=== PATIENT | male | born 1960 | race Hispanic/Latino ===

== ENCOUNTER 2018-09-20 07:36 | Emergency (ER) | payer MEDICARE ==
[2018-09-20 08:10] LABS: CREATININE 1.2 mg/dL (0.5-1.5); POTASSIUM 3.5 mmol/L (3.5-5.1)
[2018-09-20] MEDS ORDERED: FUROSEMIDE 10 MG/ML 2ML VIAL ONE (08:11)
[2018-09-20] MEDS ORDERED: ASPIRIN 325 MG TABLET ONE (08:11)
[2018-09-20] MEDS ORDERED: FUROSEMIDE 10 MG/ML 4ML VIAL ONE (08:11)
[2018-09-20] MEDS ORDERED: IPRATROPIUM/ALBUTEROL SULFATE 3 ML SOLUTION IH ONE ×2 (08:18→09:19)
[2018-09-20 08:25] LABS: ALBUMIN 1.8 g/dL (3.5-5.0); BILIRUBIN,TOTAL 0.4 mg/dL (0.2-1.0)
[2018-09-20 08:26] LABS: BASOPHILS % (AUTO) 0.9 % (0.0-5.0); EOSINOPHILS % (AUTO) 1.7 % (0.0-8.0); HEMATOCRIT 34.9 % (42-54); LYMPHOCYTES % (AUTO) 12.4 % (21.0-51.0); MEAN CORPUSCULAR HEMOGLOBIN 26.1 pg (27.0-33.0); MEAN CORPUSCULAR HGB CONC 32.3 g/dL (32.0-36.0); MEAN CORPUSCULAR VOLUME 80.7 fL (79-99); NUCLEATED RED BLOOD CELLS 0.2 % (0.0-0.19); PLATELET COUNT (AUTO) 226 K/uL (130-400); RED BLOOD CELL COUNT(AUTO) 4.32 MIL/uL (4.50-6.20); RED CELL DISTRIBUTION WIDTH 14.7 % (11.0-15.5); WHITE BLOOD COUNT (AUTO) 9.7 K/uL (4.8-10.8)
[2018-09-20 09:17] LABS: B-TYPE NATRIURETIC PEPTIDE 876 pg/mL (0-100)
[2018-09-20] MEDS ORDERED: METOPROLOL TARTRATE 50 MG TAB ONE (09:21)
[2018-09-20 09:22] LABS: INR 0.95 (0.85-1.15); PARTIAL THROMBOPLASTIN TIME 20.5 SEC (26.3-35.5)
[2018-09-20] MEDS ORDERED: ENALAPRILAT DIHYDRATE 1.25MG/ML 1ML VIAL IV SCH (09:30)
[2018-09-20 10:18] LABS: AMPHET/METH SCREEN,URINE NEGATIVE (NEGATIVE); BARBITURATE SCREEN, URINE NEGATIVE (NEGATIVE); BENZODIAZEPINES SCREEN,URINE NEGATIVE (NEGATIVE); CANNABINOID SCREEN,URINE NEGATIVE (NEGATIVE); COCAINE SCREEN,URINE NEGATIVE (NEGATIVE); OPIATE SCREEN,URINE NEGATIVE (NEGATIVE); PHENCYCLIDINE SCREEN,URINE NEGATIVE (NEGATIVE)
[2018-09-20] MEDS ORDERED: IOHEXOL 350 MG/ML 100ML INFUS..BTL IV ONE (11:20)
[2018-09-20] MEDS ORDERED: SODIUM CHLORIDE 0.9% 100 ML IV ONE (13:00)
[2018-09-20] MEDS ORDERED: CEFTRIAXONE SODIUM 1 GM ONE (13:00)
== END 2018-09-20 13:47 | disposition home or self-care (01) ==
LOC: EDH 07:36
DX: J18.0 Bronchopneumonia, unspecified organism (principal); J44.1 Chronic obstructive pulmonary disease with (acute) exacerbation; I10 Essential (primary) hypertension; I25.10 Atherosclerotic heart disease of native coronary artery without angina pectoris; E11.649 Type 2 diabetes mellitus with hypoglycemia without coma; Z72.0 Tobacco use
CPT/HCPCS: 36415; 71045; 71275; 80053; 80305; 82550; 83874; 83880; 84484; 85025; 85378; 85610; 85730; 93005; 94640 ×2; 96374; 96375; 99284; J0696; J1940 ×2; J3490; Q9967

== ENCOUNTER 2018-10-04 21:26 | Inpatient (IN) | payer MEDICARE | END 2018-10-07 17:20 | disposition home or self-care (01) | LOC: EDH 21:26 → EDHIP 23:40 → 2DH 10-05 02:18 | DX: I50.9 Heart failure, unspecified (principal); E87.6 Hypokalemia; I25.10 Atherosclerotic heart disease of native coronary artery without angina pectoris; E11.42 Type 2 diabetes mellitus with diabetic polyneuropathy; F17.200 Nicotine dependence, unspecified, uncomplicated ==

== ENCOUNTER → 2019-05-05 | Outpatient (CLI) | payer MEDICARE ==
[~2019-05-05] MED LIST: ASPI-1181 PO; FURO20TA4 PO; GLIP10TA9 PO; LISI2.5T2 PO; METF-446 PO; METO50TA9 PO; SPIR25TA PO
== END | disposition home or self-care (01) ==
LOC: OIH 09:21
PROVIDERS: ATTEND Family Medicine
DX: I50.9 Heart failure, unspecified (principal)
CPT/HCPCS: 71046

== ENCOUNTER → 2019-09-14 | Outpatient (CLI) | payer MEDICARE ==
[~2019-09-14] MED LIST changes: +ATOR20TA65 PO; +FERS325 PO; +FURO40TA5 PO; +IPRA3AMP24 IH; +PRED20TA3 PO
[2019-09-14 08:34] LABS: INR 1.04 (0.85-1.15); PARTIAL THROMBOPLASTIN TIME 28.3 SEC (26.3-35.5); PROTHROMBIN TIME 10.9 SEC (9.6-11.6)
--- NOTE | 2019-09-14 10:15 | NUR ---
U/S GD LEFT THORACENTESIS PROCEDURE PERFORMED BY DR. MCDONALD. PUNCTURE SITE LEFT POSTERIOR BACK AND PATIENT TOLERATED PROCEDURE WELL. TOTAL REMOVED 1.3 LITERS OF STRAW COLOR FLUID . END OF PROCEDURE AT 0920. CATHETER REMOVED AND DRESSING APPLIED. NO BLEEDING NOTED. POST CHEST X-RAY TAKEN AND READ BY DR. MCDONALD. NO PNEUMOTHORAX SEEN. DISCHARGE INSTRUCTIONS GIVEN TO PATIENT AND AND VERBALIZED UNDERSTANDING. DISCHARGED VIA WHEELCHAIR, AT 1015 PT STABLE, AAO X3 WITH NO C/O PAIN.
== END ==
LOC: RAH 07:10
PROVIDERS: ATTEND Family Medicine
DX: J91.8 Pleural effusion in other conditions classified elsewhere (principal); I25.810 Atherosclerosis of coronary artery bypass graft(s) without angina pectoris; E78.5 Hyperlipidemia, unspecified; I13.0 Hypertensive heart and chronic kidney disease with heart failure and stage 1 through stage 4 chronic kidney disease, or unspecified chronic kidney disease; E11.22 Type 2 diabetes mellitus with diabetic chronic kidney disease; N18.3 Chronic kidney disease, stage 3 (moderate); E11.51 Type 2 diabetes mellitus with diabetic peripheral angiopathy without gangrene; I50.33 Acute on chronic diastolic (congestive) heart failure; Z98.890 Other specified postprocedural states; Z79.01 Long term (current) use of anticoagulants; Z95.1 Presence of aortocoronary bypass graft; Z79.899 Other long term (current) drug therapy
CPT/HCPCS: 32555; 36415; 71045; 85610; 85730

== ENCOUNTER → 2019-09-29 | Outpatient (CLI) | payer MEDICARE ==
[~2019-09-29] MED LIST changes: +DOCU-116 PO; -FURO20TA4 PO; +TAMS-1 PO
--- NOTE | 2019-09-29 10:50 | NUR ---
U/S GUIDED RIGHT THORACENTESIS PROCEDURE PERFORMED BY DR. Akhil MCDONALD. PUNCTURE SITE RIGHT POSTERIOR LATERAL BACK AND PATIENT TOLERATED PROCEDURE WELL. TOTAL REMOVED 1.5 LITERS OF CLOUDY YELLOW PLEURAL FLUID. END OF PROCEDURE AT 1105. CATHETER REMOVED AND DRESSING APPLIED. NO BLEEDING NOTED. POST CHEST X-RAY DONE AND READ BY DR. Akhil MCDONALD. POSITIVE FOR PNEUMOTHORAX. ORDERS RECEIVED TO HOLD PATIENT, CONTINUE MONITORING PATIENT, REPEAT CXR IN 1-2 HOURS. INFORMED PATIENT/FAMILY PT STABLE AT THIS TIME, O2 @ 4LNC, AAO X3 WITH NO C/O PAIN.
--- NOTE | 2019-09-29 14:25 | NUR ---
REPEAT CXR PERFORMED. READ BY DR MCDONALD ORDERED TO CALL IR DR. SHAW FOR AN ULTRASOUND GUIDED RIGHT CHEST TUBE FOR NOT IMPROVING RIGHT PNEUMOTHORAX.
--- NOTE | 2019-09-29 14:35 | NUR ---
DR. MCDONALD AND DR. SHAW AT BEDSIDE SPEAKING TO PATIENT. PT STATES, "I DON'T WANT TO HAVE A CHEST TUBE PLACED AND I DON'T WANT TO BE HOSPITALIZED AND HAVE TO STAY IN THE HOSPITAL." DR SHAW ORDERED PATIENT TO BE DISCHARGED HOME FOLLOWUP IN THE MORNING THROUGH THE ED AT 8AM FOR A REPEAT CHEST XRAY. PT AND SIGNIFICANT OTHER STATED, "YES WE WILL RETURN BACK TO THE HOSPITAL TO HAVE THE CHEST XRAY DONE."
== END ==
LOC: RAH 09:20
PROVIDERS: ATTEND Family Medicine
DX: J90 Pleural effusion, not elsewhere classified (principal)
CPT/HCPCS: 32555; 71046; A4215; 71045

== ENCOUNTER → 2019-09-30 | Outpatient (CLI) | payer MEDICARE ==
[~2019-09-30] MED LIST changes: -DOCU-116 PO; -TAMS-1 PO
== END | disposition home or self-care (01) ==
LOC: RAH 07:55
PROVIDERS: ATTEND Radiology Diagnostic Radiology
DX: J90 Pleural effusion, not elsewhere classified (principal); I51.7 Cardiomegaly; J93.9 Pneumothorax, unspecified
CPT/HCPCS: 71045

== ENCOUNTER → 2019-10-01 | Outpatient (CLI) | payer MEDICARE | END | disposition home or self-care (01) | LOC: RAH 07:41 | PROVIDERS: ATTEND Radiology Diagnostic Radiology | DX: J90 Pleural effusion, not elsewhere classified (principal); J93.9 Pneumothorax, unspecified | CPT/HCPCS: 71045 ==

== ENCOUNTER → 2019-10-02 | Outpatient (CLI) | payer MEDICARE ==
--- NOTE | 2019-10-02 09:13 | NUR ---
AGAINST MEDICAL ADVICE PATIENT HAD A RT SIDED THORACENTESIS ON WEDNESDAY. POST CHEST X-RAY READ BY DR Akhil MCDONALD AND DR Sergio SHAW. LARGE PNEUMOTHORAX SEEN AND CHEST TUBE PLACEMENT RECOMMENDED. PATIENT REFUSED AND STATED HE FEELS FINE AND [place]ADISON NOT A CHEST TUBE OR BE ADMITTED. DR Sergio SHAW SUGGESTED THE PATIENT HAS "A STIFF LUNG" AND IT WILL NOT REEXPAND. PATINT DISCHARGE ON WEDNESDAY AND RETURNED WEDNESDAY, WEDNESDAY AND THIS MORNING FOR CHEST X-RAYS. RT PNEUMOTHORAX STILL PRESENT AND IMAGES REVIEWED BY DR Ned JUAREZ. RT PNEUMOTHORAX STILL PRESENT AND RECOMMENDS CHEST TUBE PLACEMENT. PATIENT CONTINUES TO REFURE CHEST TUBE AND WANTS TO GO HOME. RISKS AND COMPLICATIONS EXPLAINED TO PATIENT AND . VERBALIZED UNDERSTANDING AND STILL REQUESTS TO LEAVE. PATIENT SIGNED AMA DISCHARGE FORM AND DISCHARGED VIA W/C. AAO X3 WITH NO C/O PAIN. VS: HR-87, R-24-28, O2 SAT-99% ON RA, BP-149/66. PATIENT OUTCOME REPORTED TO DR IRVING'S OFF IC AND SPOKE TO Riki DELUCA MA.
== END | disposition home or self-care (01) ==
LOC: RAH 07:45
PROVIDERS: ATTEND Radiology Diagnostic Radiology
DX: J93.9 Pneumothorax, unspecified (principal)
CPT/HCPCS: 71045

== ENCOUNTER 2019-11-17 14:48 | Inpatient (IN) | payer MEDICARE ==
[~2019-11-17] VITALS: Ht 172.7 cm; Wt 56.7 kg
[~2019-11-17 14:48] MED LIST changes: -ASPI-1181 PO; +ASPI-1443 PO; +CARV12.511 PO; +CODE473L6 PO; +FE F1CAP33 PO; -FERS325 PO; +LISI-617 PO; -LISI2.5T2 PO; -METF-446 PO; -METO50TA9 PO; -PRED20TA3 PO; +TAMS-1 PO
[2019-11-17 15:27] LABS: BASOPHILS % (AUTO) 0.9 % (0.0-5.0); EOSINOPHILS % (AUTO) 3.4 % (0.0-8.0); HEMATOCRIT 28.7 % (42-54); LYMPHOCYTES % (AUTO) 16.6 % (21.0-51.0); MEAN CORPUSCULAR HEMOGLOBIN 25.4 pg (27.0-33.0); MONOCYTES % (AUTO) 5.4 % (3.0-13.0); NEUTROPHILS % (AUTO) 72.8 % (40.0-77.0); PLATELET COUNT (AUTO) 324 K/uL (130-400); RED CELL DISTRIBUTION WIDTH 16.7 % (11.0-15.5); WHITE BLOOD COUNT (AUTO) 8.6 K/uL (4.8-10.8)
[2019-11-17 15:34] LABS: CREATININE 2.4 mg/dL (0.5-1.5); POTASSIUM 4.8 mmol/L (3.5-5.1)
[2019-11-17] MEDS ORDERED: SODIUM CHLORIDE 0.9% 10 ML VIAL IVP PRN (16:30)
[2019-11-17] MEDS ORDERED: GLUCAGON 1MG KIT 1 MG ML IM PRN ×2 (16:45→22:45)
[2019-11-17] MEDS ORDERED: INSULIN IV SS2 SQ PRN ×2 (16:45)
[2019-11-17] MEDS ORDERED: DEXTROSE 50%-WATER 50 ML DISP.SYRIN IV PRN (16:45)
[2019-11-17 20:00] VITALS: BP 153/70
[2019-11-17 23:27] VITALS: BP 148/70
[2019-11-18 03:59] VITALS: BP 153/72
[2019-11-18 05:02] LABS: INR 0.94 (0.85-1.15); PARTIAL THROMBOPLASTIN TIME 26.6 SEC (26.3-35.5); PROTHROMBIN TIME 10.2 SEC (9.6-11.6)
[2019-11-18 05:08] LABS: BILIRUBIN,TOTAL 0.4 mg/dL (0.2-1.0); CREATININE 2.1 mg/dL (0.5-1.5); POTASSIUM 4.3 mmol/L (3.5-5.1); TOTAL PROTEIN, SERUM 6.1 g/dL (6.0-8.3)
[2019-11-18] MEDS: INSULIN HUMULIN R 100 UNIT/ML 3ML SQ SCH ×2 (06:01→11:30)
[2019-11-18 07:30] VITALS: BP 158/67
--- NOTE | 2019-11-18 08:00 | NUR ---
ASSESSMENT PT IS AAOX3 DENIES CP DENIES SOB DENIES NV SITTING UP IN BED. NO VISIBLE SIGNS OF DISTRESS NOTED. CALL LIGHT WITHIN REACH.
[2019-11-18] MEDS ORDERED: PANTOPRAZOLE SODIUM 40 MG TABLET.DR PO SCH (09:00)
[2019-11-18 11:00] VITALS: BP 138/56
[2019-11-18] MEDS ORDERED: IPRATROPIUM/ALBUTEROL SULFATE 3 ML SOLUTION IH PRN (13:15)
[2019-11-18] MEDS ORDERED: FUROSEMIDE 10 MG/ML 4ML VIAL IV SCH (14:00)
[2019-11-18] MEDS ORDERED: POTASSIUM CHLORIDE 20 MEQ ERTAB PO PRN (14:00)
[2019-11-18] MEDS ORDERED: POTASSIUM CHLORIDE 10% ELIXIR 20 MEQ/15 ML UDCUP PO PRN (14:00)
[2019-11-18] MEDS ORDERED: POTASSIUM CHLORIDE 20MEQ/100ML 100 ML IV PRN (14:00)
--- NOTE | 2019-11-18 14:37 | NUR ---
DISCHARGE DC ORDERS RECEIVED FROM DR IRVING PT AGREES TO TAKE MEDS ORDERED AGREES TO FOLLOW UP WITH DR IRVING OUTPT. ALL QUESTIONS ANSWERED, PIV REMOVED CATH TIP INTACT, TELE PACK REMOVED. AWAITING RIDE.
[2019-11-18] MEDS ORDERED: CARVEDILOL 12.5 MG TABLET PO SCH (21:00)
[2019-11-18] MEDS ORDERED: ATORVASTATIN CALCIUM 20 MG TABLET PO SCH (21:00)
[2019-11-18] MEDS ORDERED: FUROSEMIDE 40 MG TABLET PO SCH (21:00)
[2019-11-19] MEDS ORDERED: TAMSULOSIN HCL 0.4 MG CAP.ER.24H PO SCH (09:00)
[2019-11-19] MEDS ORDERED: FE FUMARATE/FA/MV, MIN COMB#15 1 TAB PO SCH (09:00)
== END 2019-11-18 14:43 | disposition home or self-care (01) | DRG 683 ==
LOC: EDH 14:48 → EDHIP 16:00 → 2DH 16:58
PROVIDERS: ADMIT Family Medicine; ATTEND Family Medicine
DX: N17.9 Acute kidney failure, unspecified (principal); I13.0 Hypertensive heart and chronic kidney disease with heart failure and stage 1 through stage 4 chronic kidney disease, or unspecified chronic kidney disease; I25.5 Ischemic cardiomyopathy; E11.22 Type 2 diabetes mellitus with diabetic chronic kidney disease; E78.5 Hyperlipidemia, unspecified; I25.10 Atherosclerotic heart disease of native coronary artery without angina pectoris; J44.9 Chronic obstructive pulmonary disease, unspecified; I50.9 Heart failure, unspecified; N18.9 Chronic kidney disease, unspecified; Z89.611 Acquired absence of right leg above knee; Z95.0 Presence of cardiac pacemaker; Z95.1 Presence of aortocoronary bypass graft; Z72.0 Tobacco use
CPT/HCPCS: 36415; 71045; 71250; 80048; 80053; 82948; 84484; 85025; 85610; 85730; 93005; 94664; G0378; J1815; J1940

== ENCOUNTER → 2019-12-12 | Outpatient (CLI) | payer MEDICARE ==
[~2019-12-12] MED LIST changes: +ASPI-1181 PO; -ASPI-1443 PO
--- NOTE | 2019-12-12 10:35 | NUR ---
U/S GUIDED RIGHT THORACENTESIS PROCEDURE PERFORMED BY DR. JUAREZ. PUNCTURE SITE RIGHT POSTERIOR BACK AND PATIENT TOLERATED PROCEDURE WELL. TOTAL REMOVED 1.3 LITERS OF CLOUDY YELLOW PLEURAL FLUID. END OF PROCEDURE AT 1040. CATHETER REMOVED AND DRESSING APPLIED. NO BLEEDING NOTED. POST CHEST X-RAY TAKEN AT AND READ BY . READ BY DR Akhil JUAREZ. NEGATIVE FOR PNEUMOTHORAX SEEN. DISCHARGE INSTRUCTIONS GIVEN TO PATIENT AND VERBALIZED UNDERSTANDING. DISCHARGED VIA W/C AT 1115. PT STABLE, AAO X3 WITH NO C/O PAIN.
[2019-12-12 10:42] LABS: INR 0.99 (0.85-1.15); PARTIAL THROMBOPLASTIN TIME 28.8 SEC (26.3-35.5); PROTHROMBIN TIME 10.7 SEC (9.6-11.6)
== END ==
LOC: RAH 09:46
PROVIDERS: ATTEND Family Medicine
DX: J91.8 Pleural effusion in other conditions classified elsewhere (principal); D46.4 Refractory anemia, unspecified; E11.51 Type 2 diabetes mellitus with diabetic peripheral angiopathy without gangrene; Z89.611 Acquired absence of right leg above knee
CPT/HCPCS: 32555; 36415; 71046; 85610; 85730; A4215

== ENCOUNTER → 2020-02-05 | Outpatient (CLI) | payer MEDICARE ==
[~2020-02-05] MED LIST changes: +ALBUMIN (HUMAN) 25% 200 ML IV ONE; -ASPI-1181 PO; +ASPI-1443 PO
[2020-02-05 09:35] LABS: INR 0.98 (0.85-1.15); PARTIAL THROMBOPLASTIN TIME 33.4 SEC (26.3-35.5); PROTHROMBIN TIME 10.6 SEC (9.6-11.6)
--- NOTE | 2020-02-05 10:11 | NUR ---
RE: PARACENTESIS INFORMED PATIENT HE WAS SCHEDULED FOR PARACENTESIS. HE STATED HE WAS HERE FOR FLUID REMOVAL FROM LUNGS. SPOKE WITH NURSE FROM DR IRVING'S OFFICE. SHE SAID THE ORDER IS FOR PARACENTESIS. PATIENT LEFT AND SAID HE WILL TALK TO DR IRVING AT THE OFFICE. DISCHARGED VIA W/C AT 1015.
--- NOTE | 2020-02-05 12:07 | NUR ---
RIGHT THORACENTESIS PERFORMED USING STERILE TECHNIQUE. 1L OF KARIN, BLOOD TINGED FLUID WAS REMOVED. THERE WAS NO SPECIMEN SENT TO THE LAB. PT TOLERATED PROCEDURE WELL AND VOICES HE IS FEELING BETTER NOW THAT THE FLUID HAS BEEN REMOVED.
--- NOTE | 2020-02-05 12:21 | NUR ---
PROCEDURE PERFORMED BY DR. Akhil MCDONALD. PUNCTURE SITE RIGHT POSTERIOR LATERAL BACK AND PATIENT TOLERATED PROCEDURE WELL. TOTAL REMOVED 1.0 LITERS OF KARIN BLOOD TINGED PLEURAL FLUID. END OF PROCEDURE AT 1133. CATHETER REMOVED AND DRESSING APPLIED. NO BLEEDING NOTED. POST CHEST X-RAY DONE AND READ BY DR. Akhil MCDONALD. PT STABLE, AAO X3 WITH NO C/O PAIN.
== END ==
LOC: RAH 08:53
PROVIDERS: ATTEND Family Medicine
DX: R18.8 Other ascites (principal); D46.4 Refractory anemia, unspecified; E11.51 Type 2 diabetes mellitus with diabetic peripheral angiopathy without gangrene; E78.49 Other hyperlipidemia; M06.4 Inflammatory polyarthropathy; I25.10 Atherosclerotic heart disease of native coronary artery without angina pectoris; Z95.1 Presence of aortocoronary bypass graft; Z79.82 Long term (current) use of aspirin; Z79.84 Long term (current) use of oral hypoglycemic drugs; Z79.899 Other long term (current) drug therapy
CPT/HCPCS: 32555; 36415; 71046; 85610; 85730; A4215; P9046

== ENCOUNTER → 2020-03-19 | Outpatient (CLI) | payer MEDICARE ==
[~2020-03-19] MED LIST changes: -ALBUMIN (HUMAN) 25% 200 ML IV ONE
[2020-03-19 10:46] LABS: INR 0.98 (0.85-1.15); PARTIAL THROMBOPLASTIN TIME 30.3 SEC (26.3-35.5); PROTHROMBIN TIME 10.6 SEC (9.6-11.6)
--- NOTE | 2020-03-19 11:30 | NUR ---
RE: COVID-19 ASSESSMENT PATIENT HAS HISTORY OF CLOSE CONTACT WITH COVID POSITIVE FAMILY MENBERS. COVID-19 RAPID TEST IgM POSITIVE 02/27/20 THEN COVID-19 RAPID TEST IgM NEGATIVE 03/12/20. DR Ned IRVING AWARE. Addendum: 03/19/20 at 1159 by DMITRI MARCELINO RN RN Amended: Links added.
--- NOTE | 2020-03-19 12:23 | NUR ---
U/S GD RT THORACENTESIS RIGHT THORACENTESIS PERFORMED USING STERILE TECHNIQUE BY DR Akhil MCDONALD. 500ML OF BLOOD TINGED FLUID WAS REMOVED. THERE WAS NO SPECIMEN SENT TO THE LAB. PT TOLERATED PROCEDURE WELL AND VOICES HE IS FEELING BETTER NOW THAT THE FLUID HAS BEEN REMOVED. POST CHEST RAY TAKEN AND REVIEWED BY DR Akhil MCDONALD. NO PNEUMOTHORAX SEEN. DISCHARGE INSTRUCTIONS GIVEN AND VERBALIZED UNDERSTANDING. DISCHARGED VIA W/C AT 1215.
== END ==
LOC: RAH 09:37
PROVIDERS: ATTEND Family Medicine
DX: J91.8 Pleural effusion in other conditions classified elsewhere (principal); I13.0 Hypertensive heart and chronic kidney disease with heart failure and stage 1 through stage 4 chronic kidney disease, or unspecified chronic kidney disease; N18.3 Chronic kidney disease, stage 3 (moderate); I50.33 Acute on chronic diastolic (congestive) heart failure; Z98.890 Other specified postprocedural states; Z79.01 Long term (current) use of anticoagulants; Z79.82 Long term (current) use of aspirin; Z79.899 Other long term (current) drug therapy
CPT/HCPCS: 32555; 36415; 71045; 85610; 85730; A4215

== ENCOUNTER → 2020-04-02 | Outpatient (CLI) | payer MEDICARE ==
--- NOTE | 2020-04-02 10:30 | NUR ---
RE: COVID-19 ASSESSMENT PATIENT HAS HISTORY OF CLOSE CONTACT WITH COVID POSITIVE FAMILY MENBERS. COVID-19 RAPID TEST IgM POSITIVE 02/27/20 THEN COVID-19 RAPID TEST IgM NEGATIVE 03/12/20. Addendum: 04/02/20 at 1201 by DMITRI MARCELINO RN RN Amended: Links added.
--- NOTE | 2020-04-02 11:30 | NUR ---
U/S GD RT THORACENTESIS RIGHT THORACENTESIS PERFORMED USING STERILE TECHNIQUE BY DR Sergio SHAW. 500ML OF BLOOD TINGED FLUID WAS REMOVED. THERE WAS NO SPECIMEN SENT TO THE LAB. PT TOLERATED PROCEDURE WELL AND VOICES HE IS FEELING BETTER NOW THAT THE FLUID HAS BEEN REMOVED. POST CHEST X-RAY TAKEN AND REVIEWED BY DR Sergio SHAW. NO PNEUMOTHORAX SEEN. DISCHARGE INSTRUCTIONS GIVEN AND VERBALIZED UNDERSTANDING. DISCHARGED VIA W/C AT 1130.
== END ==
LOC: RAH 09:40
PROVIDERS: ATTEND Family Medicine
DX: J90 Pleural effusion, not elsewhere classified (principal); R18.8 Other ascites; E11.22 Type 2 diabetes mellitus with diabetic chronic kidney disease; I13.0 Hypertensive heart and chronic kidney disease with heart failure and stage 1 through stage 4 chronic kidney disease, or unspecified chronic kidney disease; N18.3 Chronic kidney disease, stage 3 (moderate); I50.33 Acute on chronic diastolic (congestive) heart failure; E11.51 Type 2 diabetes mellitus with diabetic peripheral angiopathy without gangrene; E78.49 Other hyperlipidemia; D46.4 Refractory anemia, unspecified; F17.210 Nicotine dependence, cigarettes, uncomplicated; Z79.899 Other long term (current) drug therapy; Z79.82 Long term (current) use of aspirin; Z79.890 Hormone replacement therapy; Z98.890 Other specified postprocedural states; Z89.611 Acquired absence of right leg above knee; Z79.84 Long term (current) use of oral hypoglycemic drugs
CPT/HCPCS: 32555; 71045; A4215

== ENCOUNTER → 2020-05-07 | Outpatient (CLI) | payer MEDICARE ==
--- NOTE | 2020-05-07 08:35 | NUR ---
US GUIDED LEFT THORACENTESIS PROCEDURE PERFORMED BY DR. CHAVARRIA. PUNCTURE SITE LEFT POSTERIOR BACK AND PATIENT TOLERATED PROCEDURE WELL. TOTAL REMOVED 1.0 LITERS OF CLOUDY YELLOW FLUID. END OF PROCEDURE AT 0845. CATHETER REMOVED AND DRESSING APPLIED. NO BLEEDING NOTED. POST CHEST X-RAY TAKEN AND READ BY DR. CHAVARRIA. NO PNEUMOTHORAX SEEN. DISCHARGE INSTRUCTIONS GIVEN TO PATIENT AND VERBALIZED UNDERSTANDING. DISCHARGED VIA W/C STABLE, AAO X 3 WITH NO C/O PAIN.
[2020-05-07 08:43] LABS: INR 1.02 (0.85-1.15)
== END ==
LOC: RAH 07:42
PROVIDERS: ATTEND Family Medicine
DX: J91.8 Pleural effusion in other conditions classified elsewhere (principal); E78.5 Hyperlipidemia, unspecified; I13.0 Hypertensive heart and chronic kidney disease with heart failure and stage 1 through stage 4 chronic kidney disease, or unspecified chronic kidney disease; E11.22 Type 2 diabetes mellitus with diabetic chronic kidney disease; N18.3 Chronic kidney disease, stage 3 (moderate); E11.51 Type 2 diabetes mellitus with diabetic peripheral angiopathy without gangrene; I50.33 Acute on chronic diastolic (congestive) heart failure; E26.1 Secondary hyperaldosteronism; Z79.01 Long term (current) use of anticoagulants; Z98.890 Other specified postprocedural states
CPT/HCPCS: 32555; 36415; 71045; 85610; 85730; A4215

== ENCOUNTER → 2020-07-01 | Outpatient (CLI) | payer MEDICARE ==
[~2020-07-01] MED LIST changes: -ASPI-1443 PO
--- NOTE | 2020-07-01 10:40 | NUR ---
US GUIDED LEFT THORACENTESIS PROCEDURE PERFORMED BY DR. EISENBERG. PUNCTURE SITE LEFT POSTERIOR BACK AND PATIENT TOLERATED PROCEDURE WELL. TOTAL REMOVED 1.2 LITERS OF CLOUDY PINK TINGED PLEURAL FLUID. END OF PROCEDURE AT 1050. CATHETER REMOVED AND DRESSING APPLIED. NO BLEEDING NOTED. POST CHEST X-RAY TAKEN AND READ BY DR. EISENBERG. NO PNEUMOTHORAX SEEN. DISCHARGE INSTRUCTIONS GIVEN TO PATIENT AND VERBALIZED UNDERSTANDING. DISCHARGED VIA W/C STABLE @ 1120, AAO X 3 WITH NO C/O PAIN.
== END | disposition home or self-care (01) ==
LOC: RAH 10:41
PROVIDERS: ATTEND Family Medicine
DX: J90 Pleural effusion, not elsewhere classified (principal)
CPT/HCPCS: 32555; 71045; A4215

== ENCOUNTER → 2020-07-24 | Outpatient (CLI) | payer MEDICARE ==
[2020-07-24 09:30] LABS: INR 1.02 (0.85-1.15); PROTHROMBIN TIME 10.9 SEC (9.6-11.6)
[2020-07-24 09:32] LABS: PARTIAL THROMBOPLASTIN TIME 27.1 SEC (26.3-35.5)
--- NOTE | 2020-07-24 09:45 | NUR ---
US GUIDED LEFT THORACENTESIS PROCEDURE PERFORMED BY DR. Usha DAS. PUNCTURE SITE LEFT POSTERIOR BACK AND PATIENT TOLERATED PROCEDURE WELL. TOTAL REMOVED 800ML OF CLOUDY PINK TINGED PLEURAL FLUID. END OF PROCEDURE AT 0910. CATHETER REMOVED AND DRESSING APPLIED. NO BLEEDING NOTED. POST CHEST X-RAY TAKEN AND READ BY DR. Usha DAS. NO PNEUMOTHORAX SEEN. DISCHARGE INSTRUCTIONS GIVEN TO PATIENT AND VERBALIZED UNDERSTANDING. DISCHARGED VIA W/C STABLE @ 0945, AAO X 3 WITH NO C/O PAIN.
== END | disposition home or self-care (01) ==
LOC: RAH 08:14
PROVIDERS: ATTEND Family Medicine
DX: J90 Pleural effusion, not elsewhere classified (principal)
CPT/HCPCS: 32555; 36415; 71045; 85610; 85730; A4215

== ENCOUNTER → 2020-07-31 | Outpatient (CLI) | payer MEDICARE | END | disposition home or self-care (01) | LOC: RAH 07:52 | PROVIDERS: ATTEND Family Medicine | DX: J90 Pleural effusion, not elsewhere classified (principal); E11.22 Type 2 diabetes mellitus with diabetic chronic kidney disease; I13.0 Hypertensive heart and chronic kidney disease with heart failure and stage 1 through stage 4 chronic kidney disease, or unspecified chronic kidney disease; E11.51 Type 2 diabetes mellitus with diabetic peripheral angiopathy without gangrene; N18.30 Chronic kidney disease, stage 3 unspecified; I50.23 Acute on chronic systolic (congestive) heart failure; E78.49 Other hyperlipidemia; F17.210 Nicotine dependence, cigarettes, uncomplicated; D46.4 Refractory anemia, unspecified; J96.11 Chronic respiratory failure with hypoxia; I25.10 Atherosclerotic heart disease of native coronary artery without angina pectoris; Z79.84 Long term (current) use of oral hypoglycemic drugs; Z79.82 Long term (current) use of aspirin; Z89.511 Acquired absence of right leg below knee; Z80.0 Family history of malignant neoplasm of digestive organs; Z79.899 Other long term (current) drug therapy; Z98.890 Other specified postprocedural states | CPT/HCPCS: 32555; 71045; A4215 ==

== ENCOUNTER 2020-08-07 20:21 | Inpatient (IN) | payer MEDICARE ==
[~2020-08-07] VITALS: Ht 172.7 cm; Wt 54.1 kg
[2020-08-07 21:40] LABS: BASOPHILS % (AUTO) 0.9 % (0.0-5.0); EOSINOPHILS % (AUTO) 0.7 % (0.0-8.0); HEMATOCRIT 26.9 % (42-54); LYMPHOCYTES % (AUTO) 13.2 % (21.0-51.0); MEAN CORPUSCULAR HEMOGLOBIN 22.1 pg (27.0-33.0); MEAN CORPUSCULAR HGB CONC 29.4 g/dL (32.0-36.0); MEAN CORPUSCULAR VOLUME 75.1 fL (79-99); PLATELET COUNT (AUTO) 285 K/uL (130-400); RED BLOOD CELL COUNT(AUTO) 3.58 MIL/uL (4.50-6.20); RED CELL DISTRIBUTION WIDTH 19.3 % (11.0-15.5); WHITE BLOOD COUNT (AUTO) 5.5 K/uL (4.8-10.8)
[2020-08-07 21:51] LABS: INR 1.11 (0.85-1.15); PROTHROMBIN TIME 11.8 SEC (9.6-11.6)
[2020-08-07 21:52] LABS: CREATININE 1.9 mg/dL (0.5-1.5); POTASSIUM 4.5 mmol/L (3.5-5.1)
[2020-08-07 21:53] LABS: PARTIAL THROMBOPLASTIN TIME 25.4 SEC (26.3-35.5)
[2020-08-07 21:58] LABS: ALBUMIN 2.2 g/dL (3.5-5.0); BILIRUBIN,TOTAL 0.6 mg/dL (0.2-1.0); TOTAL PROTEIN, SERUM 6.6 g/dL (6.0-8.3)
[2020-08-07 22:06] LABS: B-TYPE NATRIURETIC PEPTIDE 2540 pg/mL (0-100)
[2020-08-08 05:35] VITALS: BP 132/91
[2020-08-08 06:22] LABS: HEMATOCRIT 26.2 % (42-54); MEAN CORPUSCULAR HEMOGLOBIN 21.9 pg (27.0-33.0); MEAN CORPUSCULAR HGB CONC 28.6 g/dL (32.0-36.0); MEAN CORPUSCULAR VOLUME 76.4 fL (79-99); RED BLOOD CELL COUNT(AUTO) 3.43 MIL/uL (4.50-6.20); RED CELL DISTRIBUTION WIDTH 19.2 % (11.0-15.5); WHITE BLOOD COUNT (AUTO) 5.9 K/uL (4.8-10.8)
[2020-08-08 06:35] LABS: CREATININE 1.9 mg/dL (0.5-1.5); POTASSIUM 4.7 mmol/L (3.5-5.1)
[2020-08-08 07:58] VITALS: BP 144/79
[2020-08-08] MEDS ORDERED: ACETAMINOPHEN 650 MG SUPPOSITORY RC PRN (08:30)
[2020-08-08] MEDS ORDERED: LACTULOSE 20 GM/30 ML UDCUP PO PRN (08:30)
[2020-08-08] MEDS ORDERED: POTASSIUM CHLORIDE 10% ELIXIR 20 MEQ/15 ML UDCUP PO PRN (08:30)
[2020-08-08] MEDS ORDERED: GLUCAGON 1MG KIT 1 MG ML IM PRN (08:30)
[2020-08-08] MEDS ORDERED: CLONIDINE HCL 0.1 MG TABLET PO PRN (08:30)
[2020-08-08] MEDS ORDERED: LIDOCAINE HCL-MPF 1% 2ML VIAL IV PRN (08:30)
[2020-08-08] MEDS ORDERED: ACETAMINOPHEN 325 MG TAB PO PRN (08:30)
[2020-08-08] MEDS ORDERED: POTASSIUM CHLORIDE 10MEQ/100ML 100 ML IV PRN (08:30)
[2020-08-08] MEDS ORDERED: POTASSIUM CHLORIDE 20 MEQ ERTAB PO PRN (08:30)
[2020-08-08] MEDS ORDERED: IPRATROPIUM/ALBUTEROL SULFATE 3 ML SOLUTION IH PRN (08:30)
[2020-08-08] MEDS ORDERED: DEXTROSE 50%-WATER 50 ML DISP.SYRIN IV PRN (08:30)
[2020-08-08] MEDS ORDERED: TEMAZEPAM 15 MG CAPSULE PO PRN (08:30)
[2020-08-08 09:26] LABS: TROPONIN I 0.05 ng/mL (0.00-0.06)
[2020-08-08] MEDS: FE FUMARATE/FA/MV, MIN COMB#15 1 TAB PO SCH (11:21)
[2020-08-08] MEDS: TAMSULOSIN HCL 0.4 MG CAP.ER.24H PO SCH (11:21)
[2020-08-08] MEDS: CARVEDILOL 12.5 MG TABLET PO SCH ×2 (11:21→21:22)
[2020-08-08] MEDS: LISINOPRIL 5 MG TABLET PO SCH (11:21)
[2020-08-08] MEDS: INSULIN HUMULIN R 100 UNIT/ML 3ML SQ SCH ×3 (11:22→21:24)
[2020-08-08] MEDS: FUROSEMIDE 10 MG/ML 4ML VIAL IV SCH (11:22)
[2020-08-08] MEDS: ASPIRIN 81MG TAB.CHEW PO SCH (11:22)
[2020-08-08] MEDS: METHYLPREDNISOLONE SOD SUCC 125MG/2ML VIAL IVP SCH ×2 (11:22→16:03)
[2020-08-08 16:13] LABS: CREATINE KINASE, TOTAL 59 U/L (21-232); MYOGLOBIN 170 ng/mL (10-92); TROPONIN I < 0.04 ng/mL (0.00-0.06)
[2020-08-08 17:02] VITALS: BP 131/64
[2020-08-08 18:01] LABS: APPEARANCE,URINE Clear (CLEAR); BILIRUBIN,URINE Negative (NEGATIVE); COLOR,URINE Yellow (YELLOW); GLUCOSE, URINE (UA) 250 mg/dL (NEGATIVE); KETONES,URINE Negative (NEGATIVE); LEUKOCYTE ESTERASE ,URINE Negative (NEGATIVE); NITRATE,URINE Negative (NEGATIVE); OCCULT BLOOD,URINE Small (NEGATIVE); PROTEIN,URINE 300 mg/dL (NEGATIVE); UROBILINOGEN,URINE 0.2 mg/dL (0.2-1.0)
[2020-08-08 18:05] LABS: AMPHET/METH SCREEN,URINE NEGATIVE (NEGATIVE); BARBITURATE SCREEN, URINE NEGATIVE (NEGATIVE); BENZODIAZEPINES SCREEN,URINE NEGATIVE (NEGATIVE); CANNABINOID SCREEN,URINE NEGATIVE (NEGATIVE); COCAINE SCREEN,URINE NEGATIVE (NEGATIVE); OPIATE SCREEN,URINE NEGATIVE (NEGATIVE); PHENCYCLIDINE SCREEN,URINE NEGATIVE (NEGATIVE)
[2020-08-08 18:23] LABS: BACTERIA,URINE None Seen /HPF (None Seen); RBC,URINE None Seen /HPF (0-1); SQUAMOUS EPITHELIAL CELL,UR None Seen /HPF (0-2); WBC,URINE 0-1 /HPF (0-1)
[2020-08-08 20:06] VITALS: BP 124/64
[2020-08-08 21:18] LABS: CREATINE KINASE, TOTAL 57 U/L (21-232); MYOGLOBIN 159 ng/mL (10-92); TROPONIN I < 0.04 ng/mL (0.00-0.06)
[2020-08-08] MEDS: ATORVASTATIN CALCIUM 20 MG TABLET PO SCH (21:23)
[2020-08-08] MEDS: AZITHROMYCIN 250 MG TABLET PO SCH (21:30)
[2020-08-08 23:42] VITALS: BP 101/58
[2020-08-09] MEDS: METHYLPREDNISOLONE SOD SUCC 125MG/2ML VIAL IVP SCH ×3 (00:05→18:00)
[2020-08-09 04:09] LABS: BASOPHILS % (AUTO) 0.3 % (0.0-5.0); HEMATOCRIT 24.1 % (42-54); LYMPHOCYTES % (AUTO) 8.4 % (21.0-51.0); MEAN CORPUSCULAR HGB CONC 28.6 g/dL (32.0-36.0); MONOCYTES % (AUTO) 1.3 % (3.0-13.0); NEUTROPHILS % (AUTO) 89.7 % (40.0-77.0); PLATELET COUNT (AUTO) 266 K/uL (130-400); RED BLOOD CELL COUNT(AUTO) 3.13 MIL/uL (4.50-6.20); RED CELL DISTRIBUTION WIDTH 18.8 % (11.0-15.5); WHITE BLOOD COUNT (AUTO) 3.1 K/uL (4.8-10.8)
[2020-08-09 04:13] VITALS: BP 116/59
[2020-08-09 04:19] LABS: CREATININE 2.1 mg/dL (0.5-1.5); POTASSIUM 5.4 mmol/L (3.5-5.1); THYROID STIMULATING HORMONE 0.6 uIU/mL (0.36-3.74)
[2020-08-09] MEDS: INSULIN HUMULIN R 100 UNIT/ML 3ML SQ SCH ×4 (06:28→22:45)
[2020-08-09 08:00] VITALS: BP 101/53
[2020-08-09] MEDS: FUROSEMIDE 10 MG/ML 4ML VIAL IV SCH ×2 (08:30→09:56)
[2020-08-09] MEDS: ASPIRIN 81MG TAB.CHEW PO SCH (09:00)
[2020-08-09] MEDS: TAMSULOSIN HCL 0.4 MG CAP.ER.24H PO SCH (09:54)
[2020-08-09] MEDS: FE FUMARATE/FA/MV, MIN COMB#15 1 TAB PO SCH (09:54)
[2020-08-09] MEDS: CARVEDILOL 12.5 MG TABLET PO SCH ×2 (09:55→20:57)
[2020-08-09] MEDS: LISINOPRIL 5 MG TABLET PO SCH (09:55)
[2020-08-09] MEDS: CEFTRIAXONE SODIUM 500 MG VIAL IV SCH (10:32)
[2020-08-09 12:47] VITALS: BP 117/58
[2020-08-09] MEDS ORDERED: ALBUTEROL INHALER 90MCG/INH IH PRN (16:00)
[2020-08-09 17:15] VITALS: BP 123/63
[2020-08-09 18:14] LABS: BASOPHILS % (AUTO) 0.1 % (0.0-5.0); HEMATOCRIT 30.7 % (42-54); LYMPHOCYTES % (AUTO) 4.6 % (21.0-51.0); MEAN CORPUSCULAR HEMOGLOBIN 23.1 pg (27.0-33.0); MEAN CORPUSCULAR HGB CONC 29.3 g/dL (32.0-36.0); MEAN CORPUSCULAR VOLUME 78.9 fL (79-99); MONOCYTES % (AUTO) 2.3 % (3.0-13.0); NEUTROPHILS % (AUTO) 92.5 % (40.0-77.0); PLATELET COUNT (AUTO) 269 K/uL (130-400); RED BLOOD CELL COUNT(AUTO) 3.89 MIL/uL (4.50-6.20); RED CELL DISTRIBUTION WIDTH 17.6 % (11.0-15.5)
[2020-08-09 20:00] VITALS: BP 112/57
[2020-08-09] MEDS: AZITHROMYCIN 250 MG TABLET PO SCH (20:25)
[2020-08-09] MEDS: ATORVASTATIN CALCIUM 20 MG TABLET PO SCH (20:25)
[2020-08-10] VITALS: BP 106/55
[2020-08-10] MEDS: METHYLPREDNISOLONE SOD SUCC 125MG/2ML VIAL IVP SCH ×3 (00:47→17:05)
[2020-08-10 04:00] VITALS: BP 107/55
[2020-08-10 06:19] LABS: HEMATOCRIT 28.2 % (42-54); LYMPHOCYTES % (AUTO) 4.6 % (21.0-51.0); MEAN CORPUSCULAR HEMOGLOBIN 22.7 pg (27.0-33.0); MEAN CORPUSCULAR HGB CONC 29.4 g/dL (32.0-36.0); MONOCYTES % (AUTO) 3.1 % (3.0-13.0); NEUTROPHILS % (AUTO) 91.8 % (40.0-77.0); PLATELET COUNT (AUTO) 266 K/uL (130-400); RED BLOOD CELL COUNT(AUTO) 3.66 MIL/uL (4.50-6.20); RED CELL DISTRIBUTION WIDTH 17.6 % (11.0-15.5)
[2020-08-10] MEDS: INSULIN HUMULIN R 100 UNIT/ML 3ML SQ SCH ×4 (06:32→20:45)
[2020-08-10 08:08] VITALS: BP 135/49
[2020-08-10] MEDS: FUROSEMIDE 10 MG/ML 4ML VIAL IV SCH ×2 (08:30→10:40)
[2020-08-10] MEDS: CARVEDILOL 12.5 MG TABLET PO SCH ×2 (09:00→20:47)
[2020-08-10] MEDS: LISINOPRIL 5 MG TABLET PO SCH (09:00)
[2020-08-10] MEDS: FE FUMARATE/FA/MV, MIN COMB#15 1 TAB PO SCH (10:41)
[2020-08-10] MEDS: TAMSULOSIN HCL 0.4 MG CAP.ER.24H PO SCH (10:41)
[2020-08-10 12:00] VITALS: BP 124/56
[2020-08-10] MEDS: CEFTRIAXONE SODIUM 500 MG VIAL IV SCH (12:28)
[2020-08-10 18:11] VITALS: BP 121/56
[2020-08-10 19:00] VITALS: BP 122/56
[2020-08-10] MEDS: ATORVASTATIN CALCIUM 20 MG TABLET PO SCH (20:47)
[2020-08-10] MEDS: AZITHROMYCIN 250 MG TABLET PO SCH (20:47)
[2020-08-10 23:26] LABS: HEMATOCRIT 27.2 % (42-54)
[2020-08-10 23:34] LABS: INR 1.1 (0.85-1.15); PROTHROMBIN TIME 11.7 SEC (9.6-11.6)
[2020-08-10 23:35] LABS: PARTIAL THROMBOPLASTIN TIME 27.6 SEC (26.3-35.5)
[2020-08-10 23:37] LABS: CREATININE 2.5 mg/dL (0.5-1.5); POTASSIUM 4.5 mmol/L (3.5-5.1)
[2020-08-11] VITALS (22 sets, daily range): BP systolic 106–149; BP diastolic 46–76
[2020-08-11 07:21] LABS: HEMATOCRIT 28.7 % (42-54); MEAN CORPUSCULAR HEMOGLOBIN 22.7 pg (27.0-33.0); MEAN CORPUSCULAR HGB CONC 29.6 g/dL (32.0-36.0); MEAN CORPUSCULAR VOLUME 76.7 fL (79-99); RED BLOOD CELL COUNT(AUTO) 3.74 MIL/uL (4.50-6.20); WHITE BLOOD COUNT (AUTO) 9.4 K/uL (4.8-10.8)
[2020-08-11] MEDS: INSULIN HUMULIN R 100 UNIT/ML 3ML SQ SCH ×4 (07:30→21:00)
[2020-08-11 07:34] LABS: INR 1.12 (0.85-1.15); PROTHROMBIN TIME 11.9 SEC (9.6-11.6)
[2020-08-11 07:35] LABS: PARTIAL THROMBOPLASTIN TIME 27.7 SEC (26.3-35.5)
[2020-08-11 08:09] LABS: CREATININE 2.6 mg/dL (0.5-1.5); POTASSIUM 5.2 mmol/L (3.5-5.1)
[2020-08-11] MEDS: CARVEDILOL 12.5 MG TABLET PO SCH ×2 (09:00→21:00)
[2020-08-11] MEDS: LISINOPRIL 5 MG TABLET PO SCH (09:00)
[2020-08-11] MEDS ORDERED: PANTOPRAZOLE 40 MG/VIAL IVP SCH (09:00)
[2020-08-11] MEDS: TAMSULOSIN HCL 0.4 MG CAP.ER.24H PO SCH (09:00)
[2020-08-11] MEDS: FE FUMARATE/FA/MV, MIN COMB#15 1 TAB PO SCH (09:00)
[2020-08-11] MEDS: FUROSEMIDE 10 MG/ML 4ML VIAL IV SCH (10:16)
[2020-08-11] MEDS: CEFTRIAXONE SODIUM 500 MG VIAL IV SCH (10:16)
[2020-08-11] MEDS ORDERED: PROPOFOL 10 MG/ML 20ML VIAL IV ONE (11:27)
[2020-08-11] MEDS ORDERED: LIDOCAINE HCL-MPF 2% 5ML VIAL ONE (11:27)
[2020-08-11] MEDS ORDERED: EPHEDRINE SULFATE 50 MG/ML AMPULE ONE (11:51)
[2020-08-11 13:14] LABS: HEMATOCRIT 29.1 % (42-54)
[2020-08-11] MEDS ORDERED: LACTULOSE 20 GM/30 ML UDCUP PO PRN (15:00)
[2020-08-11 19:51] LABS: HEMATOCRIT 31.4 % (42-54)
[2020-08-11] MEDS: AZITHROMYCIN 250 MG TABLET PO SCH (21:09)
[2020-08-11] MEDS: ATORVASTATIN CALCIUM 20 MG TABLET PO SCH (21:09)
[2020-08-11] MEDS: INSULIN GLARGINE 100 UNITS/ML 10 ML VIAL SQ SCH (21:19)
[2020-08-12 01:15] LABS: HEMATOCRIT 29.8 % (42-54)
[2020-08-12 03:51] VITALS: BP 143/61
[2020-08-12] MEDS: INSULIN HUMULIN R 100 UNIT/ML 3ML SQ SCH ×4 (06:23→20:44)
[2020-08-12 06:33] LABS: HEMATOCRIT 30.3 % (42-54); MEAN CORPUSCULAR HEMOGLOBIN 22.8 pg (27.0-33.0); MEAN CORPUSCULAR HGB CONC 29.4 g/dL (32.0-36.0); MEAN CORPUSCULAR VOLUME 77.5 fL (79-99); RED BLOOD CELL COUNT(AUTO) 3.91 MIL/uL (4.50-6.20); RED CELL DISTRIBUTION WIDTH 18.5 % (11.0-15.5); WHITE BLOOD COUNT (AUTO) 7.3 K/uL (4.8-10.8)
[2020-08-12 06:58] LABS: CREATININE 2.3 mg/dL (0.5-1.5); MAGNESIUM 1.9 mg/dL (1.80-2.40); POTASSIUM 4.5 mmol/L (3.5-5.1)
[2020-08-12 08:08] VITALS: BP 140/57
[2020-08-12] MEDS: CEFTRIAXONE SODIUM 500 MG VIAL IV SCH (09:00)
[2020-08-12] MEDS ORDERED: LACTULOSE 20 GM/30 ML UDCUP PO PRN (09:00)
[2020-08-12] MEDS: FUROSEMIDE 10 MG/ML 4ML VIAL IV SCH (09:58)
[2020-08-12] MEDS: FE FUMARATE/FA/MV, MIN COMB#15 1 TAB PO SCH (09:59)
[2020-08-12] MEDS: CARVEDILOL 12.5 MG TABLET PO SCH ×2 (09:59→23:42)
[2020-08-12] MEDS: TAMSULOSIN HCL 0.4 MG CAP.ER.24H PO SCH (09:59)
[2020-08-12] MEDS: LISINOPRIL 5 MG TABLET PO SCH (10:00)
[2020-08-12] MEDS: PANTOPRAZOLE SODIUM 40 MG TABLET.DR PO SCH (10:00)
[2020-08-12 12:30] VITALS: BP 135/63
[2020-08-12 12:31] LABS: TOTAL PROTEIN, SERUM 5.3 g/dL (6.0-8.3)
[2020-08-12 13:12] LABS: APPEARANCE BODY FLUID SLIGHTLY CLOUDY (CLEAR); SPECIMENTYPE,BODY FLUID PLEURAL
[2020-08-12 13:13] LABS: BODY FLUID RBC 2950 /cu. mm.; BODY FLUID WBC 69 /cu. mm.; COLOR,BODY FLUID YELLOW (LT YELLOW); TOTAL VOLUME,BODY FLUID 800 mL
[2020-08-12 13:58] LABS: BF LYMPHOCYTE 67 %; BF MESOTHELIAL 26 %; BF MONOCYTE 4 %
[2020-08-12 16:00] VITALS: BP 144/56
[2020-08-12] MEDS ORDERED: PEG 3350/NA SULF,BICARB,CL/KCL 4000 ML SOLN PO SCH (16:00)
[2020-08-12] MEDS ORDERED: CEFTRIAXONE SODIUM 1 GM ONE (17:35)
[2020-08-12] MEDS: INSULIN GLARGINE 100 UNITS/ML 10 ML VIAL SQ SCH (20:44)
[2020-08-12] MEDS: ATORVASTATIN CALCIUM 20 MG TABLET PO SCH (20:55)
[2020-08-12 21:00] VITALS: BP 132/49
[2020-08-12] MEDS: AZITHROMYCIN 250 MG TABLET PO SCH (21:02)
[2020-08-13] VITALS (7 sets, daily range): BP systolic 118–148; BP diastolic 51–61
[2020-08-13 04:47] LABS: BASOPHILS % (AUTO) 0.2 % (0.0-5.0); EOSINOPHILS % (AUTO) 0.9 % (0.0-8.0); MEAN CORPUSCULAR HEMOGLOBIN 22.8 pg (27.0-33.0); MEAN CORPUSCULAR HGB CONC 29.7 g/dL (32.0-36.0); MEAN CORPUSCULAR VOLUME 76.9 fL (79-99); MONOCYTES % (AUTO) 7.2 % (3.0-13.0); NEUTROPHILS % (AUTO) 79.4 % (40.0-77.0); PLATELET COUNT (AUTO) 241 K/uL (130-400); RED CELL DISTRIBUTION WIDTH 18.5 % (11.0-15.5); WHITE BLOOD COUNT (AUTO) 6.4 K/uL (4.8-10.8)
[2020-08-13 05:01] LABS: CREATININE 2.4 mg/dL (0.5-1.5); PHOSPHORUS 4.7 mg/dL (2.5-4.9); POTASSIUM 3.8 mmol/L (3.5-5.1)
[2020-08-13 07:09] LABS: ABG BASE EXCESS -0.3 mmol/L (-2.0-3.0); ABG HCO3 25.9 mmol/L (21.0-28.0); ABG OXYGEN SATURATION 95.8 % (95.0-99.0); ABG PCO2 48 mmHg (35-48)
[2020-08-13] MEDS: INSULIN HUMULIN R 100 UNIT/ML 3ML SQ SCH ×4 (07:23→20:50)
[2020-08-13 07:24] LABS: % IRON SATURATION 5.6 % (30-44)
[2020-08-13] MEDS: CEFTRIAXONE SODIUM 500 MG VIAL IV SCH (09:00)
[2020-08-13] MEDS ORDERED: CEFAZOLIN SODIUM 1 GM VIAL ONE (10:29)
[2020-08-13] MEDS: TAMSULOSIN HCL 0.4 MG CAP.ER.24H PO SCH (10:35)
[2020-08-13] MEDS: FE FUMARATE/FA/MV, MIN COMB#15 1 TAB PO SCH (10:36)
[2020-08-13] MEDS: PANTOPRAZOLE SODIUM 40 MG TABLET.DR PO SCH (10:37)
[2020-08-13] MEDS: CARVEDILOL 12.5 MG TABLET PO SCH ×2 (10:58→21:41)
[2020-08-13] MEDS ORDERED: IRON SUCROSE COMPLEX 300 MG in SODIUM CHLORIDE 0.9% 50 ML IV SCH (12:15)
[2020-08-13] MEDS ORDERED: EPOETIN ALFA-EPBX (ESRD) 10,000 UNIT/ML VIAL SQ SCH (12:30)
[2020-08-13] MEDS ORDERED: COMPOUND IV MISC 1 EACH IVSOLN MISC PRN (15:15)
[2020-08-13] MEDS: INSULIN GLARGINE 100 UNITS/ML 10 ML VIAL SQ SCH (21:37)
[2020-08-13] MEDS: ATORVASTATIN CALCIUM 20 MG TABLET PO SCH (21:37)
[2020-08-13] MEDS: AZITHROMYCIN 250 MG TABLET PO SCH (21:41)
[2020-08-14 04:44] LABS: HEMATOCRIT 28.7 % (42-54); MEAN CORPUSCULAR HGB CONC 30.3 g/dL (32.0-36.0); MEAN CORPUSCULAR VOLUME 75.9 fL (79-99); PLATELET COUNT (AUTO) 249 K/uL (130-400); RED BLOOD CELL COUNT(AUTO) 3.78 MIL/uL (4.50-6.20); RED CELL DISTRIBUTION WIDTH 18.2 % (11.0-15.5); WHITE BLOOD COUNT (AUTO) 7.1 K/uL (4.8-10.8)
[2020-08-14 04:55] LABS: HEMOGLOBIN A1C 7.1 % (4.0-6.0)
[2020-08-14 05:00] LABS: ALBUMIN 1.7 g/dL (3.5-5.0); BILIRUBIN,DIRECT 0.1 mg/dL (0.0-0.3); BILIRUBIN,TOTAL 0.4 mg/dL (0.2-1.0); CREATININE 1.9 mg/dL (0.5-1.5); PHOSPHORUS 3.5 mg/dL (2.5-4.9); POTASSIUM 3.7 mmol/L (3.5-5.1); TOTAL PROTEIN, SERUM 5.4 g/dL (6.0-8.3)
[2020-08-14 05:18] VITALS: BP 150/94
[2020-08-14 05:23] LABS: BAND NEUTROPHILS % (MANUAL) 2 % (0-2); LYMPHOCYTES % (MANUAL) 12 % (22-44); MAN.DIFF COMMENT-IMPRESSION MANUAL DIFFERENTIAL; MONOCYTES % (MANUAL) 6 % (2-9); PLATELET MORPHOLOGY COMMENT ADEQUATE; SEGMENTED NEUTROPHILS % 80 % (40-70)
[2020-08-14] MEDS: INSULIN HUMULIN R 100 UNIT/ML 3ML SQ SCH ×5 (05:58→21:00)
[2020-08-14 08:00] VITALS: BP 143/55
[2020-08-14] MEDS ORDERED: IRON SUCROSE COMPLEX 100 MG in SODIUM CHLORIDE 0.9% 50 ML IV SCH (09:00)
[2020-08-14] MEDS: FE FUMARATE/FA/MV, MIN COMB#15 1 TAB PO SCH (11:00)
[2020-08-14] MEDS: CARVEDILOL 12.5 MG TABLET PO SCH ×2 (11:01→21:10)
[2020-08-14] MEDS: TAMSULOSIN HCL 0.4 MG CAP.ER.24H PO SCH (11:02)
[2020-08-14] MEDS: PANTOPRAZOLE SODIUM 40 MG TABLET.DR PO SCH (11:02)
[2020-08-14 12:00] VITALS: BP 139/52
[2020-08-14] MEDS: CEFTRIAXONE SODIUM 500 MG VIAL IV SCH (13:47)
[2020-08-14] MEDS: IRON SUCROSE COMPLEX 300 MG in SODIUM CHLORIDE 0.9% 250 ML IV SCH (13:48)
[2020-08-14 16:00] VITALS: BP 150/58
[2020-08-14 20:00] VITALS: BP 149/57
[2020-08-14] MEDS: AZITHROMYCIN 250 MG TABLET PO SCH (21:10)
[2020-08-14] MEDS: ATORVASTATIN CALCIUM 20 MG TABLET PO SCH (21:10)
[2020-08-14] MEDS: INSULIN GLARGINE 100 UNITS/ML 10 ML VIAL SQ SCH (21:12)
[2020-08-15] VITALS: BP 140/65
[2020-08-15 00:59] LABS: BILIRUBIN,URINE Negative (NEGATIVE); COLOR,URINE Dark Yellow (YELLOW); GLUCOSE, URINE (UA) TRACE mg/dL (NEGATIVE); KETONES,URINE Negative (NEGATIVE); LEUKOCYTE ESTERASE ,URINE Negative (NEGATIVE); NITRATE,URINE Negative (NEGATIVE); OCCULT BLOOD,URINE Small (NEGATIVE); PROTEIN,URINE 300 mg/dL (NEGATIVE); UROBILINOGEN,URINE 0.2 mg/dL (0.2-1.0)
[2020-08-15 01:13] LABS: APPEARANCE,URINE CLEAR (CLEAR)
[2020-08-15 01:17] LABS: PROTEIN,URINE RANDOM 304.2 mg/dL (0-11.9)
[2020-08-15 01:38] LABS: BACTERIA,URINE Few /HPF (None Seen)
[2020-08-15 01:39] LABS: AMORPHOUS SEDIMENT,UR Few /LPF (None Seen); COARSE GRANULAR CASTS,URINE 0-2 /LPF (None Seen); FINE GRANULAR CASTS,URINE 0-2 /LPF (None Seen); SQUAMOUS EPITHELIAL CELL,UR 0-2 /HPF (0-2)
[2020-08-15 03:49] VITALS: BP 123/53
[2020-08-15] MEDS: INSULIN HUMULIN R 100 UNIT/ML 3ML SQ SCH ×3 (05:13→17:37)
[2020-08-15 05:34] LABS: BASOPHILS % (AUTO) 0.1 % (0.0-5.0); EOSINOPHILS % (AUTO) 3.1 % (0.0-8.0); HEMATOCRIT 28.6 % (42-54); LYMPHOCYTES % (AUTO) 16.2 % (21.0-51.0); MEAN CORPUSCULAR HEMOGLOBIN 22.8 pg (27.0-33.0); MEAN CORPUSCULAR HGB CONC 29.4 g/dL (32.0-36.0); MEAN CORPUSCULAR VOLUME 77.5 fL (79-99); MONOCYTES % (AUTO) 8.5 % (3.0-13.0); NEUTROPHILS % (AUTO) 71.5 % (40.0-77.0); PLATELET COUNT (AUTO) 222 K/uL (130-400); RED BLOOD CELL COUNT(AUTO) 3.69 MIL/uL (4.50-6.20); RED CELL DISTRIBUTION WIDTH 18.4 % (11.0-15.5); WHITE BLOOD COUNT (AUTO) 6.7 K/uL (4.8-10.8)
[2020-08-15 06:02] LABS: CREATININE 1.9 mg/dL (0.5-1.5); POTASSIUM 3.6 mmol/L (3.5-5.1)
[2020-08-15 08:45] VITALS: BP 127/51
[2020-08-15] MEDS: PANTOPRAZOLE SODIUM 40 MG TABLET.DR PO SCH (10:51)
[2020-08-15] MEDS: CARVEDILOL 12.5 MG TABLET PO SCH (10:51)
[2020-08-15] MEDS: TAMSULOSIN HCL 0.4 MG CAP.ER.24H PO SCH (10:51)
[2020-08-15] MEDS: FE FUMARATE/FA/MV, MIN COMB#15 1 TAB PO SCH (10:51)
[2020-08-15] MEDS: CEFTRIAXONE SODIUM 500 MG VIAL IV SCH (12:08)
[2020-08-15] MEDS: IRON SUCROSE COMPLEX 300 MG in SODIUM CHLORIDE 0.9% 250 ML IV SCH (12:14)
[2020-08-15 12:45] VITALS: BP 132/41
[2020-08-15 16:29] VITALS: BP 143/50
[2020-08-15] MEDS ORDERED: EPOETIN ALFA 10,000 UNIT/ML VIAL SQ SCH (20:00)
== END 2020-08-15 20:15 | disposition left against medical advice (07) | DRG 291 ==
LOC: EDH 20:21 → EDHIP 23:51 → OBSVTOIN 23:51 → 3BH 08-08 01:29 → 4BH 08-08 18:27 → 4CH 08-10 18:15 → 3DH 08-11 06:24 → UNDODISIN 08-15 20:15
PROVIDERS: ADMIT Internal Medicine; ATTEND Internal Medicine
PROC: 30233N1 Transfusion of Nonautologous Red Blood Cells into Peripheral Vein, Percutaneous Approach (ICD-10-PCS; 2020-08-09)
PROC: 0DJ08ZZ Inspection of Upper Intestinal Tract, Via Natural or Artificial Opening Endoscopic (ICD-10-PCS; 2020-08-11)
PROC: 0W9B3ZZ Drainage of Left Pleural Cavity, Percutaneous Approach (ICD-10-PCS; principal; 2020-08-12)
DX: I13.0 Hypertensive heart and chronic kidney disease with heart failure and stage 1 through stage 4 chronic kidney disease, or unspecified chronic kidney disease (principal); J96.01 Acute respiratory failure with hypoxia; I50.23 Acute on chronic systolic (congestive) heart failure; K29.01 Acute gastritis with bleeding; K26.4 Chronic or unspecified duodenal ulcer with hemorrhage; N17.9 Acute kidney failure, unspecified; J91.8 Pleural effusion in other conditions classified elsewhere; J44.1 Chronic obstructive pulmonary disease with (acute) exacerbation; J98.11 Atelectasis; N18.9 Chronic kidney disease, unspecified; E11.22 Type 2 diabetes mellitus with diabetic chronic kidney disease; D50.9 Iron deficiency anemia, unspecified; E11.51 Type 2 diabetes mellitus with diabetic peripheral angiopathy without gangrene; F17.210 Nicotine dependence, cigarettes, uncomplicated; R53.81 Other malaise; I25.10 Atherosclerotic heart disease of native coronary artery without angina pectoris; K21.00 Gastro-esophageal reflux disease with esophagitis, without bleeding; I42.9 Cardiomyopathy, unspecified; Z53.29 Procedure and treatment not carried out because of patient's decision for other reasons; N20.0 Calculus of kidney; Z20.822 Contact with and (suspected) exposure to COVID-19; Z79.84 Long term (current) use of oral hypoglycemic drugs; Z79.899 Other long term (current) drug therapy; Z82.49 Family history of ischemic heart disease and other diseases of the circulatory system; Z87.11 Personal history of peptic ulcer disease; Z89.611 Acquired absence of right leg above knee; Z91.14 Patient's other noncompliance with medication regimen; Z91.19 Patient's noncompliance with other medical treatment and regimen; Z95.1 Presence of aortocoronary bypass graft; Z80.41 Family history of malignant neoplasm of ovary
CPT/HCPCS: 32555; 36415; 36600; 43235; 71045; 71250; 76770; 80048; 80053; 80076; 80305; 81001; 82270; 82306; 82550; 82570; 82728; 82803; 82945; 82948; 83036; 83540; 83550; 83605; 83615; 83735; 83874; 83880; 83986; 84100; 84145; 84155; 84156; 84157; 84443; 84484; 85014; 85018; 85025; 85027; 85610; 85730; 86677; 86850; 86900; 86901; 86923; 87071; 87116; 87205; 87206; 87426; 87804; 89051; 93005; 93306; 93356; 94760; 97039; A4606; C9113; G0378; J0690; J0696; J0885; J1756; J1815; J1940; J2704; J2930; J3490; J7030; J7050; P9016; U0003

== ENCOUNTER 2020-08-30 13:16 | Emergency (ER) | payer MEDICARE ==
[~2020-08-30 13:16] MED LIST changes: -LISI-617 PO; +LISI5TAB21 PO
[2020-08-30 14:12] LABS: BASOPHILS % (AUTO) 0.9 % (0.0-5.0); EOSINOPHILS % (AUTO) 1.3 % (0.0-8.0); HEMATOCRIT 29.8 % (42-54); LYMPHOCYTES % (AUTO) 12.1 % (21.0-51.0); MEAN CORPUSCULAR HGB CONC 29.2 g/dL (32.0-36.0); MEAN CORPUSCULAR VOLUME 82.1 fL (79-99); MONOCYTES % (AUTO) 4.7 % (3.0-13.0); NEUTROPHILS % (AUTO) 80.6 % (40.0-77.0); PLATELET COUNT (AUTO) 248 K/uL (130-400); RED BLOOD CELL COUNT(AUTO) 3.63 MIL/uL (4.50-6.20); WHITE BLOOD COUNT (AUTO) 5.5 K/uL (4.8-10.8)
[2020-08-30 14:22] LABS: CREATININE 1.8 mg/dL (0.5-1.5); POTASSIUM 4.7 mmol/L (3.5-5.1)
[2020-08-30 14:23] LABS: INR 1.12 (0.85-1.15); PROTHROMBIN TIME 11.9 SEC (9.6-11.6)
[2020-08-30 14:25] LABS: PARTIAL THROMBOPLASTIN TIME 27.6 SEC (26.3-35.5)
[2020-08-30 14:27] LABS: ALBUMIN 2.3 g/dL (3.5-5.0); BILIRUBIN,TOTAL 0.6 mg/dL (0.2-1.0); TOTAL PROTEIN, SERUM 6.5 g/dL (6.0-8.3)
== END 2020-08-30 15:46 | disposition home or self-care (01) ==
LOC: EDH 13:16
DX: J90 Pleural effusion, not elsewhere classified (principal); Z20.828 Contact with and (suspected) exposure to other viral communicable diseases; I50.9 Heart failure, unspecified; E11.9 Type 2 diabetes mellitus without complications; I10 Essential (primary) hypertension; Z72.0 Tobacco use
CPT/HCPCS: 32555; 36415; 71045 ×2; 80053; 84484; 85025; 85610; 85730; 93005; 99285; A4215; C1729

== ENCOUNTER 2020-10-30 18:58 | Emergency (ER) | payer MEDICARE ==
[~2020-10-30 18:58] MED LIST changes: +LISI-809 PO; -LISI5TAB21 PO
[2020-10-30 19:21] LABS: BASOPHILS % (AUTO) 0.9 % (0.0-5.0); EOSINOPHILS % (AUTO) 2.3 % (0.0-8.0); LYMPHOCYTES % (AUTO) 15.7 % (21.0-51.0); MEAN CORPUSCULAR HEMOGLOBIN 25.5 pg (27.0-33.0); MEAN CORPUSCULAR HGB CONC 29.7 g/dL (32.0-36.0); MEAN CORPUSCULAR VOLUME 85.9 fL (79-99); MONOCYTES % (AUTO) 6.1 % (3.0-13.0); NEUTROPHILS % (AUTO) 74.8 % (40.0-77.0); PLATELET COUNT (AUTO) 286 K/uL (130-400); RED BLOOD CELL COUNT(AUTO) 3.61 MIL/uL (4.50-6.20); RED CELL DISTRIBUTION WIDTH 17.1 % (11.0-15.5); WHITE BLOOD COUNT (AUTO) 5.7 K/uL (4.8-10.8)
[2020-10-30 19:31] LABS: CREATININE 2.1 mg/dL (0.5-1.5); POTASSIUM 5.5 mmol/L (3.5-5.1)
[2020-10-30 19:40] LABS: ALBUMIN 2.1 g/dL (3.5-5.0); BILIRUBIN,TOTAL 0.5 mg/dL (0.2-1.0); TOTAL PROTEIN, SERUM 6.1 g/dL (6.0-8.3)
== END 2020-10-30 22:58 | disposition home or self-care (01) ==
LOC: EDH 18:58
DX: I11.0 Hypertensive heart disease with heart failure (principal); I50.42 Chronic combined systolic (congestive) and diastolic (congestive) heart failure; J44.9 Chronic obstructive pulmonary disease, unspecified; J90 Pleural effusion, not elsewhere classified; E11.9 Type 2 diabetes mellitus without complications; Z72.0 Tobacco use
CPT/HCPCS: 36415; 71045; 80053; 84484; 85025; 93005

== ENCOUNTER → 2020-11-06 | Outpatient (CLI) | payer MEDICARE | END | disposition home or self-care (01) | LOC: RAH 09:17 | PROVIDERS: ATTEND Family Medicine | DX: J90 Pleural effusion, not elsewhere classified (principal); E11.22 Type 2 diabetes mellitus with diabetic chronic kidney disease; I13.0 Hypertensive heart and chronic kidney disease with heart failure and stage 1 through stage 4 chronic kidney disease, or unspecified chronic kidney disease; N18.30 Chronic kidney disease, stage 3 unspecified; I50.33 Acute on chronic diastolic (congestive) heart failure; J44.9 Chronic obstructive pulmonary disease, unspecified; F17.200 Nicotine dependence, unspecified, uncomplicated; E78.49 Other hyperlipidemia; D46.4 Refractory anemia, unspecified; J96.11 Chronic respiratory failure with hypoxia; I25.10 Atherosclerotic heart disease of native coronary artery without angina pectoris; Z80.9 Family history of malignant neoplasm, unspecified; Z79.899 Other long term (current) drug therapy; Z79.84 Long term (current) use of oral hypoglycemic drugs; Z98.890 Other specified postprocedural states; Z95.1 Presence of aortocoronary bypass graft | CPT/HCPCS: 32555; 71045; A4215 ==

== ENCOUNTER → 2020-11-27 | Outpatient (CLI) | payer MEDICARE | END | disposition home or self-care (01) | LOC: RAH 10:19 | PROVIDERS: ATTEND Family Medicine | DX: J90 Pleural effusion, not elsewhere classified (principal); R18.8 Other ascites; E11.22 Type 2 diabetes mellitus with diabetic chronic kidney disease; I13.0 Hypertensive heart and chronic kidney disease with heart failure and stage 1 through stage 4 chronic kidney disease, or unspecified chronic kidney disease; N18.30 Chronic kidney disease, stage 3 unspecified; I50.42 Chronic combined systolic (congestive) and diastolic (congestive) heart failure; J44.9 Chronic obstructive pulmonary disease, unspecified; F17.200 Nicotine dependence, unspecified, uncomplicated; E78.49 Other hyperlipidemia; D46.4 Refractory anemia, unspecified; J96.11 Chronic respiratory failure with hypoxia; I25.10 Atherosclerotic heart disease of native coronary artery without angina pectoris; Z80.9 Family history of malignant neoplasm, unspecified; Z79.84 Long term (current) use of oral hypoglycemic drugs; Z79.899 Other long term (current) drug therapy; Z95.1 Presence of aortocoronary bypass graft; Z98.890 Other specified postprocedural states | CPT/HCPCS: 32555; 71045; A4215 ==

== ENCOUNTER → 2020-12-04 | Outpatient (CLI) | payer MEDICARE | END | disposition home or self-care (01) | LOC: RAH 10:31 | PROVIDERS: ATTEND Family Medicine | DX: J90 Pleural effusion, not elsewhere classified (principal); R18.8 Other ascites; E11.22 Type 2 diabetes mellitus with diabetic chronic kidney disease; I13.0 Hypertensive heart and chronic kidney disease with heart failure and stage 1 through stage 4 chronic kidney disease, or unspecified chronic kidney disease; N18.30 Chronic kidney disease, stage 3 unspecified; I50.33 Acute on chronic diastolic (congestive) heart failure; J44.9 Chronic obstructive pulmonary disease, unspecified; F17.200 Nicotine dependence, unspecified, uncomplicated; E78.49 Other hyperlipidemia; D46.4 Refractory anemia, unspecified; I25.10 Atherosclerotic heart disease of native coronary artery without angina pectoris; Z80.9 Family history of malignant neoplasm, unspecified; Z79.899 Other long term (current) drug therapy; Z98.890 Other specified postprocedural states; Z79.84 Long term (current) use of oral hypoglycemic drugs; Z95.1 Presence of aortocoronary bypass graft | CPT/HCPCS: 32555; 71045; A4215 ==

== ENCOUNTER → 2020-12-18 | Outpatient (CLI) | payer MEDICARE | LOC: RAH 10:19 | PROVIDERS: ATTEND Family Medicine | DX: J90 Pleural effusion, not elsewhere classified (principal) | CPT/HCPCS: 32555; 71045; A4215 ==

== ENCOUNTER → 2021-01-24 | Outpatient (CLI) | payer MEDICARE ==
[2021-01-24 13:20] LABS: INR 1.09 (0.85-1.15); PROTHROMBIN TIME 11.8 SEC (9.6-11.6)
[2021-01-24 13:21] LABS: PARTIAL THROMBOPLASTIN TIME 28.2 SEC (26.3-35.5)
== END ==
LOC: RAH 10:25
PROVIDERS: ATTEND Family Medicine
DX: J90 Pleural effusion, not elsewhere classified (principal); R18.8 Other ascites; Z95.1 Presence of aortocoronary bypass graft; Z79.01 Long term (current) use of anticoagulants; Z79.899 Other long term (current) drug therapy
CPT/HCPCS: 32555; 36415; 71045; 85610; 85730; A4215

== ENCOUNTER → 2021-02-07 | Outpatient (CLI) | payer MEDICARE | END | disposition home or self-care (01) | LOC: RAH 10:13 | PROVIDERS: ATTEND Family Medicine | DX: J90 Pleural effusion, not elsewhere classified (principal); R18.8 Other ascites | CPT/HCPCS: 32555; 71045; A4215 ==

== ENCOUNTER → 2021-02-28 | Outpatient (CLI) | payer MEDICARE ==
[2021-02-28 11:27] LABS: INR 1.12 (0.85-1.15); PROTHROMBIN TIME 12.1 SEC (9.6-11.6)
[2021-02-28 11:28] LABS: PARTIAL THROMBOPLASTIN TIME 29.7 SEC (26.3-35.5)
== END | disposition home or self-care (01) ==
LOC: RAH 10:16
PROVIDERS: ATTEND Family Medicine
DX: J90 Pleural effusion, not elsewhere classified (principal); R18.8 Other ascites; J44.9 Chronic obstructive pulmonary disease, unspecified; F17.210 Nicotine dependence, cigarettes, uncomplicated; I25.5 Ischemic cardiomyopathy; E11.22 Type 2 diabetes mellitus with diabetic chronic kidney disease; I13.0 Hypertensive heart and chronic kidney disease with heart failure and stage 1 through stage 4 chronic kidney disease, or unspecified chronic kidney disease; N18.30 Chronic kidney disease, stage 3 unspecified; I50.33 Acute on chronic diastolic (congestive) heart failure; I25.10 Atherosclerotic heart disease of native coronary artery without angina pectoris; E11.51 Type 2 diabetes mellitus with diabetic peripheral angiopathy without gangrene; Z79.01 Long term (current) use of anticoagulants; Z79.899 Other long term (current) drug therapy
CPT/HCPCS: 32555; 36415; 71045; 85610; 85730; A4215

== ENCOUNTER 2021-03-07 07:02 | Emergency (ER) | payer MEDICARE ==
[~2021-03-07] VITALS: Ht 152.4 cm; Wt 63.5 kg
[2021-03-07] MEDS ORDERED: EPINEPHRINE 1MG SYG 10ML IVP ONE (07:03)
[2021-03-07] MEDS ORDERED: SODIUM BICARB 8.4% 50ML SYRINGE IVP ONE (07:03)
== END 2021-03-07 09:13 ==
LOC: EDH 07:02
DX: I46.9 Cardiac arrest, cause unspecified (principal); I10 Essential (primary) hypertension; E11.9 Type 2 diabetes mellitus without complications; Z79.84 Long term (current) use of oral hypoglycemic drugs; Z79.899 Other long term (current) drug therapy
CPT/HCPCS: 92950; 94799; 99285; J0171; J3490; 94770